=== PATIENT | male | born 1990 | race Caucasian/White ===

== ENCOUNTER 2018-11-03 08:39 | Outpatient (CLI) | payer BC ==
--- NOTE | 2018-11-03 09:28 | ULT ---
ULTRASOUND ABDOMEN: Date: 11/03/18 HISTORY: Ulcerative colitis. FINDINGS: The liver, kidneys, gallbladder, and visualized portions of the aorta and IVC are normal. The spleen is enlarged, measuring 14.6 cm, Common duct measures 2.0 mm in diameter. The pancreas is obscured by overlying bowel gas. No free fluid is seen. IMPRESSION: Splenomegaly. POS: OFF
== END 2018-11-03 08:40 | disposition home or self-care (01) ==
LOC: BICULT 08:39
PROVIDERS: ATTEND Internal Medicine
DX: K51.90 Ulcerative colitis, unspecified, without complications (principal); R16.1 Splenomegaly, not elsewhere classified
CPT/HCPCS: 76700

== ENCOUNTER 2019-10-27 07:33 | Outpatient (CLI) | payer BC ==
--- NOTE | 2019-10-27 08:07 | ULT ---
ULTRASOUND ABDOMEN COMPLETE: DATE: 10/27/2019 HISTORY: Primary sclerosing cholangitis. FINDINGS: Gallbladder: Normal wall thickness. No gallstones or sludge identified. No pericholecystic fluid. Liver: Normal parenchymal echogenicity. Bilateral kidneys: No hydronephrosis. Pancreas: Nonspecific sonographic appearance. Common duct caliber: 4 mm. Abdominal aorta: No aneurysm Inferior vena cava: Unremarkable where visualized. Spleen: 17.5 x 6 x 6.5 cm. IMPRESSION: Splenomegaly
== END 2019-10-27 07:34 | disposition home or self-care (01) ==
LOC: BICULT 07:33
PROVIDERS: ATTEND Internal Medicine
DX: K51.90 Ulcerative colitis, unspecified, without complications (principal); K83.01 Primary sclerosing cholangitis; R16.1 Splenomegaly, not elsewhere classified
CPT/HCPCS: 93975

== ENCOUNTER 2020-08-31 07:58 | Outpatient (CLI) | payer BC ==
--- NOTE | 2020-08-31 10:49 | MRI ---
MRI ABDOMEN WITHOUT AND WITH CONTRAST: Date: 08/31/2020 HISTORY: Ulcerative colitis and primary sclerosing cholangitis. COMPARISON: MRCP dated 11/07/2015 and abdominal ultrasounds dated 10/27/2019 and 11/03/2018. TECHNIQUE: Multiplanar, multisequence MR images were obtained of the abdomen without and with IV contrast. FINDINGS: The liver still has a smooth contour. No focal liver lesions are seen. No loss of signal is seen in t he liver on [id number] images. No intrahepatic or extrahepatic biliary dilatation is seen. The portal vein and hepatic veins are patent without evidence of thrombus. The spleen is enlarged, measuring 20.6 cm in length. The kidneys, gallbladder, adrenal glands, and pa ncreas are unremarkable. No abdominal adenopathy is seen. No marrow signal abnormality is present. IMPRESSION: 1. No focal liver or biliary abnormality identified on this exam. 2. Splenomegaly. POS: EAA
[2020-08-31] MEDS ORDERED: Magnevist 469MG/ML 20 ML VIAL ONE (13:10)
== END 2020-08-31 07:59 | disposition home or self-care (01) ==
LOC: BICMRI 07:58
PROVIDERS: ATTEND Internal Medicine
DX: K83.01 Primary sclerosing cholangitis (principal); K51.00 Ulcerative (chronic) pancolitis without complications; L29.9 Pruritus, unspecified; R16.1 Splenomegaly, not elsewhere classified
CPT/HCPCS: 74183; A9579

== ENCOUNTER 2021-05-01 07:38 | Outpatient (CLI) | payer BC | END 2021-05-01 07:39 | disposition home or self-care (01) | LOC: BICMRI 07:38 | DX: K76.0 Fatty (change of) liver, not elsewhere classified (principal); K83.01 Primary sclerosing cholangitis; R94.5 Abnormal results of liver function studies; R16.1 Splenomegaly, not elsewhere classified; K76.6 Portal hypertension | CPT/HCPCS: 74183 ==

== ENCOUNTER 2021-10-26 10:58 | Outpatient (CLI) | payer BC ==
[2021-10-26 12:12] LABS: Anion Gap 12 mmol/L (10-20); BUN (Urea Nitrogen) 6 mg/dL (8.9-20.6); Calc. Creatinine Clearance 0 mL/min (70-130); Calcium 8.7 mg/dL (7.8-10.44); Carbon Dioxide 27 mmol/L (22-29); Chloride 107 mmol/L (98-107); Glucose 104 mg/dL (70-105); Potassium 4.5 mmol/L (3.5-5.1); Sodium 141 mmol/L (136-145)
[2021-10-26 12:13] LABS: #Basophils 0.1 10x3/uL (0.0-0.2); #Eosinphils 0.2 10x3/uL (0.0-0.5); #Monocytes 0.6 10x3/uL (0.0-1.1); #Neutrophils 4.5 10x3/uL (1.5-8.4); %Basophils 0.8 % (0.0-2.0); %Eosinophils 2.7 % (0.0-6.0); %Lymphocytes 15.6 % (18.0-47.0); %Monocytes 9.8 % (0.0-10.0); %Neutrophils 70.6 % (40.0-75.0); Hemoglobin 13.1 g/dL (13.5-17.5); Mean Corpuscular HGB CONC 32.4 g/dL (32.0-36.0); Mean Corpuscular Volume 92.7 fl (81.2-95.1); Mean Platelet Volume 11.4 fl (7.4-10.4); Platelet Count 121 10x3/uL (150-450); RBC Distribution Width 16.7 % (11.5-14.5); Red Blood Cell (RBC) Count 4.36 10x6/uL (4.32-5.72); White Blood Cell (WBC) Count 6.3 10x3/uL (3.5-10.5)
[2021-10-27 00:13] LABS: SARS-CoV-2 PCR by NAA Not Detected (NotDetected)
== END 2021-10-26 10:59 | disposition home or self-care (01) ==
LOC: LABBT 10:58
PROVIDERS: ATTEND Surgery
DX: Z01.812 Encounter for preprocedural laboratory examination (principal); Z20.822 Contact with and (suspected) exposure to COVID-19
CPT/HCPCS: 80048; 85025; U0003; U0005

== ENCOUNTER 2021-10-30 08:38 | Day surgery (SDC) | payer BC ==
[2021-10-29 10:06] VITALS: BMI 23.6
[2021-10-30] MEDS ORDERED: Fentanyl 100 MCG/2 ML VIAL ONE (09:54)
[2021-10-30] MEDS ORDERED: Bupivacaine 0.25% HCL 30 ML VIAL ONE (09:56)
[2021-10-30] MEDS ORDERED: Xylocaine 1% w/ Epi 1:100K 10 ML VIAL ONE (09:56)
[2021-10-30] MEDS ORDERED: ceFAZolin 2 GM/Dextrose 50 ML IVPB ONE (10:02)
[2021-10-30] MEDS ORDERED: Lidocaine 1% PF 5 ML VIAL ONE (10:15)
[2021-10-30] MEDS ORDERED: Ketorolac Tromethamine 30 MG/ML VIAL ONE (10:15)
[2021-10-30] MEDS ORDERED: Dexamethasone 20 MG/5 ML VIAL ONE (10:15)
[2021-10-30] MEDS ORDERED: Glycopyrrolate 0.2 MG/ML 5 ML SYRINGE ONE (10:15)
[2021-10-30] MEDS ORDERED: Ondansetron PF 4 MG/2 ML Vial ONE (10:15)
[2021-10-30] MEDS ORDERED: Rocuronium Bromide 10 MG/ML (10ML VIAL) ONE (10:15)
[2021-10-30] MEDS ORDERED: PROPOFOL 200 MG/20 ML VIAL ONE (10:15)
[2021-10-30] MEDS ORDERED: HYDROcodone/Acetaminophen 5/325 mg Tablet ONE (12:46)
== END 2021-10-30 13:40 | disposition home or self-care (01) ==
LOC: SDC 08:38
PROVIDERS: ATTEND Surgery
PROC: 0YUA4JZ Supplement Bilateral Inguinal Region with Synthetic Substitute, Percutaneous Endoscopic Approach (ICD-10-PCS; principal; 2021-10-30)
DX: K40.20 Bilateral inguinal hernia, without obstruction or gangrene, not specified as recurrent (principal); K51.90 Ulcerative colitis, unspecified, without complications; Z79.899 Other long term (current) drug therapy
CPT/HCPCS: C1781; J0690; J1100; J1885; J2405; J2704; J3010; S0020